=== PATIENT | male | born 1960 | race Caucasian/White ===

== ENCOUNTER 2017-05-31 14:43 | Emergency (ER) | payer MEDICAID, OTHER ==
[2017-05-31 14:51] VITALS: RESP 18; TEMP 98.3
--- NOTE | 2017-05-31 15:23 | ED PDOC ---
Arrival/HPI - General Historian: Patient - History of Present Illness Time/Duration: Other (12hrs) Symptom Onset: Sudden Symptom Course: Unchanged Quality: Aching, Cramping Severity Level: 6, Moderate Activities at Onset: Rest Context: Home <Rita Wheatley - Last Filed: 05/31/17 16:29> <Arsen Cerna Jr. - Last Filed: 05/31/17 17:13> - General Chief Complaint: Abdominal Pain Time Seen by Provider: 05/31/17 14:52 - History of Present Illness Narrative History of Present Illness (Text): 05/31/17 15:41 This is a 57Y [place] male with PMH of Hypertension and Diabetes who came to emergency department for sudden epigastric pain since last night. Patient reports he woke up in the middle of the night with sharp epigastric pain that radiates bilaterally around to his back. He admits to eating a large salty and spicy meal for dinner. He also reports burping a lot as well and has not taken any medication to make it better. The patient denies CP, SOB, n/v/d, numbness/ tingling, fever or chills, sick contacts or recent travel. He has regular BMs once per day without dark color or blood. (Rita Wheatley) Past Medical History - Provider Review Nursing Documentation Reviewed: Yes - Travel History Have you recently traveled outside [place] w/in the past 3 mons?: No - Infectious Disease Hx of Infectious Diseases: None - Cardiac Hx Hypertension: Yes - Endocrine/Metabolic Hx Diabetes Mellitus Type 2: Yes - Psychiatric Hx Psychophysiologic Disorder: No Hx Anxiety: No Hx Bipolar Disorder: No Hx Depression: No Hx Emotional Abuse: No Hx Hallucinations: No Hx Panic Disorder: No Hx Post Traumatic Stress Disorder: No Hx Psychosis: No Hx Physical Abuse: No Hx Schizophrenia: No Hx Sexual Abuse: No Hx Substance Use: No - Surgical History Other/Comment: Hernia repair - Anesthesia Hx Anesthesia: Yes Hx Anesthesia Reactions: No Hx Malignant Hyperthermia: No <Rita Wheatley - Last Filed: 05/31/17 16:29> Family/Social History - Physician Review Nursing Documentation Reviewed: Yes Family/Social History: Neoplasm/Cancer (brain cancer- mom) Smoking Status: Heavy Smoker > 10 Cigarettes Daily Hx Alcohol Use: Yes Frequency of alcohol use: Socially Hx Substance Use: No <Rita Wheatley - Last Filed: 05/31/17 16:29> Allergies/Home Meds <Rita Wheatley - Last Filed: 05/31/17 16:29> <Arsen Cerna Jr. - Last Filed: 05/31/17 17:13> Allergies/Adverse Reactions: Allergies No Known Allergies Allergy (Verified 05/31/17 14:51) Review of Systems - Physician Review All systems were reviewed & negative as marked: Yes - Review of Systems Constitutional: Normal. absent: Fevers, Night Sweats Respiratory: Normal. absent: SOB, Cough Cardiovascular: Normal. absent: Chest Pain Gastrointestinal: Abdominal Pain (radiates to back ). absent: Stool Changes, Nausea, Vomiting, Hematochezia, Anorexia, Food Intolerance Genitourinary Male: Normal. absent: Dysuria, Frequency Musculoskeletal: Normal Skin: Normal. absent: Rash, Pruritis Neurological: Normal. absent: Headache, Dizziness Endocrine: Normal Hemo/Lymphatic: Normal Psychiatric: Normal <Rita Wheatley - Last Filed: 05/31/17 16:29> Physical Exam Vital Signs Reviewed: Yes Temperature: Afebrile Blood Pressure: Normal Pulse: Regular Respiratory Rate: Normal Appearance: Positive for: Well-Appearing, Non-Toxic, Comfortable Pain Distress: None Mental Status: Positive for: Alert and Oriented X 3 - Systems Exam Head: Present: Atraumatic, Normocephalic Pupils: Present: PERRL Extroacular Muscles: Present: EOMI Conjunctiva: Present: Normal Mouth: Present: Moist Mucous Membranes Neck: Present: Normal Range of Motion Respiratory/Chest: Present: Clear to Auscultation, Good Air Exchange. No: Respiratory Distress, Accessory Muscle Use Cardiovascular: Present: Regular Rate and Rhythm, Normal S1, S2. No: Murmurs Abdomen: Present: Tenderness, Normal Bowel Sounds. No: Distention, Peritoneal Signs, Rebound, Guarding, Mass/Organomegaly Back: Present: Normal Inspection Upper Extremity: Present: Normal Inspection. No: Cyanosis, Edema Lower Extremity: Present: Normal Inspection. No: Edema Neurological: Present: GCS=15, CN II-XII Intact, Speech Normal Skin: Present: Warm, Dry, Normal Color. No: Rashes Psychiatric: Present: Alert, Oriented x 3, Normal Insight, Normal Concentration <Rita Wheatley - Last Filed: 05/31/17 16:29> <Arsen Cerna Jr. - Last Filed: 05/31/17 17:13> Vital Signs Temp Pulse Resp BP Pulse Ox 05/31/17 16:04 66 18 138/64 98 05/31/17 14:46 98.3 F 65 18 142/65 97 Medical Decision Making Re-evaluation Time: 16:14 Reassessment Condition: Improved - EKG Interpretation Interpreted by ED Physician: Yes Type: 12 lead EKG <Rita Wheatley - Last Filed: 05/31/17 16:29> <Arsen Cerna Jr. - Last Filed: 05/31/17 17:13> ED Course and Treatment: 05/31/17 15:47 Impression: This is a 57Y M with PMH of Diabetes and Hypertension who came to emergency department for epigastric pain that radiates to his back x 12hrs. Differential Diagnosis included but are not limited to: GERD v. pancreatitis v. choledocolithiasis Plan: - CBC, CMP, Lipase - EKG - Pepcid - Reassess and disposition Progress Notes: 05/31/17 15:49 EKG: Ordered, reviewed, and independently interpreted the EKG. Rate : 62 BPM Rhythm : NSR Interpretation : No ST-segment elevations or depressions, no T-wave inversions, normal intervals. Comparison : No previous EKG for comparison. 05/31/17 16:14 Patient reports feeling better. Labs all within normal limits. Carafate was also given. He reports he has an appointment with Dr. Pierre for colonoscopy on Jun 13. He reports he had an EGD a few years ago and was normal. Patient was told to tell Dr. Pierre and PMD Dr. Miller about his acid reflux symptoms to schedule EGD at time of colonoscopy. (Rita Wheatley) 05/31/17 Patient Seen With Resident: In agreement with resident note which contains more details about the patient. Patient was seen and evaluated with resident. Came up with plan and treatment together. 05/31/17 17:09 ATTENDING PHYSICIAN FOCUSED HISTORY AND PHYSICAL EXAM NOTE: Pt is a 57 yr old male who was seen and examined with the resident. Pt is c/o midepigastric pain since the middle of the night. Pt ate very spicey food last night. Used to take H2 michelle but no longer takes. On our exam, T 98.3, P 65, R 18, BP 142/65 Gen: Pt is A&O x 3 in NAD Heart: RRR Lungs: CTA B/L Abd: soft, mild midepigastric tenderness Initial impression: Midepigstric pain--possible PUC Initial plan: Will check labs and give Pepcid (Arsen Cerna Jr.) - Lab Interpretations Lab Results: 05/31/17 15:30 05/31/17 15:30 Lab Results 05/31/17 15:30: Sodium 139, Potassium 4.9, Chloride 105, Carbon Dioxide 28, Anion Gap 11, BUN 12, Creatinine 0.8, Est GFR ( Amer) > 60, Est GFR (Non- Af Amer) > 60, Random Glucose 97, Calcium 9.6, Total Bilirubin 0.4, AST 28, ALT 23, Alkaline Phosphatase 50, Total Protein 6.9, Albumin 4.1, Globulin 2.8, Albumin/Globulin Ratio 1.5, Lipase 55 05/31/17 15:30: WBC 5.3, RBC 5.59, Hgb 16.2, Hct 47.6, MCV 85.2, MCH 29.0, MCHC 34.0, RDW 13.5, Plt Count 218, MPV 9.6 - Medication Orders Current Medication Orders: Discontinued Medications Famotidine (Pepcid) 40 mg PO STAT STA Stop: 05/31/17 15:19 Last Admin: 05/31/17 15:42 Dose: 40 mg Sucralfate (Carafate Oral Susp) 1 gm PO STAT STA Stop: 05/31/17 16:15 Last Admin: 05/31/17 16:33 Dose: 1 gm Disposition/Present on Arrival - Present on Arrival Any Indicators Present on Arrival: No History of DVT/PE: No History of Uncontrolled Diabetes: No Urinary Catheter: No History of Decub. Ulcer: No History Surgical Site Infection Following: None - Disposition Have Diagnosis and Disposition been Completed?: Yes Disposition Time: 16:30 Patient Plan: Discharge <Rita Wheatley - Last Filed: 05/31/17 16:29> - Present on Arrival Any Indicators Present on Arrival: No - Disposition Have Diagnosis and Disposition been Completed?: Yes <Arsen Cerna Jr. - Last Filed: 05/31/17 17:13> - Disposition Diagnosis: Abdominal pain Disposition: HOME/ ROUTINE Condition: IMPROVED Print Language: MICRONESIAN Additional Instructions: Mr. Arroyo, thank you for letting us take care of you today. Your provider was Dr. Wheatley. You were treated for abdominal pain. The emergency medical care you received today was directed at your acute symptoms. If you were prescribed any medication, please fill it and take as directed. It may take several days for your symptoms to resolve. Return to the Emergency Department if your symptoms worsen, do not improve, or if you have any other problems. Please contact your doctor or call one of the physicians/clinics you have been referred to that are listed on the Patient Visit Information form that is included in your discharge packet. Bring any paperwork you were given at discharge with you along with any medications you are taking to your follow up visit. Our treatment cannot replace ongoing medical care by a primary care provider (PCP) outside of the emergency department. Thank you for allowing the [facility] team to be part of your care today. Prescriptions: Famotidine [Pepcid] 40 mg PO DAILY #30 tab Referrals: Xiang Pierre MD [Staff Provider] - Follow up with primary José Miller MD [Primary Care Provider] - Follow up with primary Forms: [employer] (Moz[place]ican)
[2017-05-31 15:48] LABS: HEMATOCRIT 47.6 % (42.0-52.0); MEAN CELL VOLUME 85.2 fl (80.0-105.0); MEAN PLATELET VOLUME 9.6 fl (7.0-11.0); RED CELL DISTRIBUTION WIDTH 13.5 % (11.5-14.5); WHITE BLOOD COUNT 5.3 10^3/ul (4.5-11.0)
[2017-05-31 16:04] VITALS: BP 138/64; PULSE 66; O2SAT 98
[2017-05-31 16:04] LABS: ALB/GLOB RATIO 1.5 (1.1-1.8); ALKALINE PHOSPHATASE 50 U/L (38-126); ALT/SGPT 23 U/L (7-56); AST/SGOT 28 U/L (17-59); BILIRUBIN,TOTAL 0.4 mg/dL (0.2-1.3); BLOOD UREA NITROGEN 12 mg/dL (7-21); CALCIUM 9.6 mg/dL (8.4-10.5); CARBON DIOXIDE 28 mmol/L (21-33); CHLORIDE 105 mmol/L (98-107); GFR AFRICAN-AMERICAN > 60; GLUCOSE,RANDOM 97 mg/dL (70-110); LIPASE 55 U/L (23-300); POTASSIUM 4.9 mmol/L (3.6-5.0); SODIUM 139 mmol/L (132-148); TOTAL PROTEIN 6.9 g/dL (5.8-8.3)
[2017-05-31] MEDS ORDERED: Sucralfate 1 gm/10 ml Oral Susp UD PO STA (16:14)
--- NOTE | 2017-06-01 11:13 | CARD ---
APPROVED REPORT EKG Measurement Heart [id number] <Conclusion> Normal sinus rhythm Normal ECG
== END 2017-05-31 16:34 | disposition home or self-care (01) ==
LOC: ED 14:43
DX: R10.9 Unspecified abdominal pain (principal); I10 Essential (primary) hypertension; E11.9 Type 2 diabetes mellitus without complications; F17.210 Nicotine dependence, cigarettes, uncomplicated

== ENCOUNTER 2017-07-11 06:28 | Day surgery (SDC) | payer MEDICAID ==
[2017-06-29 11:22] VITALS: BMI 29.9
[2017-07-11] MEDS ORDERED: Propofol 10 mg/ml Inj (20 ML) ONE (08:07)
[2017-07-11] MEDS ORDERED: Sodium Chloride 0.9% 1,000 ML IV SCH (08:45)
[2017-07-11 09:35] VITALS: BP 114/64; PULSE 60; RESP 16; TEMP 97.6; O2SAT 100
== END 2017-07-11 10:10 | disposition home or self-care (01) ==
LOC: ENDO 06:28
PROVIDERS: ATTEND Internal Medicine
DX: Z12.11 Encounter for screening for malignant neoplasm of colon (principal); K29.50 Unspecified chronic gastritis without bleeding; K57.30 Diverticulosis of large intestine without perforation or abscess without bleeding; K64.8 Other hemorrhoids; I10 Essential (primary) hypertension; E11.9 Type 2 diabetes mellitus without complications; F17.210 Nicotine dependence, cigarettes, uncomplicated; R10.13 Epigastric pain
CPT/HCPCS: 43239; 45378; 82948; 88305; 88342; J2001; J2704; J3010; J7040 ×2

== ENCOUNTER 2019-02-04 11:06 | Outpatient (CLI) | payer OTHER | END 2019-02-04 11:07 | disposition home or self-care (01) | LOC: RAD 11:06 ==